=== PATIENT | male | born 1930 | race Caucasian/White ===

== ENCOUNTER → 2016-10-27 | Outpatient (CLI) | payer MEDICARE, OTHER ==
--- NOTE | 2016-10-27 15:48 | RADRPT ---
PROCEDURE: Video-fluoroscopy swallowing study. CLINICAL INDICATION: Dysphagia. TECHNIQUE: Fluoroscopic guided video swallowing study was done in conjunction with the speech ther apist. The study was confined to the oral, pharyngeal, and cervical phases of the swallowing mechani sm. 4.1 minutes of fluoroscopy time was used. COMPARISON: No prior study is available for comparison. FINDINGS: There is aspiration during swallowing of nectar-thick liquids by straw and thin liquids swallowed vi a cup. IMPRESSION: 1. Aspiration during swallowing. 2. Please refer to the speech therapist's recommendations for future feedings. RPTAT: QQ .Delroy Shultz MD, MD Date Time Electronically viewed and signed by .Delroy Shultz MD, MD on 10/27/2016 15:48 .R/
== END | disposition home or self-care (01) ==
LOC: RAD 12:08
PROVIDERS: ATTEND Internal Medicine
DX: R13.10 Dysphagia, unspecified (principal)
CPT/HCPCS: 74230; 92611; G8996; G8997; G8998